=== PATIENT | male | born 1950 | race Caucasian/White ===

== ENCOUNTER 2020-03-17 14:34 | Outpatient (CLI) | payer BC, SELFPAY ==
--- NOTE | 2020-03-17 15:33 | ECHO_ITS ---
Patient Info Name: Rob Miller Age: 69 years : 1950 Gender: Male Ht: 74 in Wt: 224 lbs BSA: 2.32 m2 HR: 96 bpm BP: 152 / 115 mmHg Heart Rhythm: Atrial Fibrillation Technical Quality: Good Exam Date: 03/17/2020 3:50 PM Exam Location: [facility] Patient Status: Outpatient Admit Date: 03/17/2020 Staff Ordering Physician: Jose Luis Eisenberg DO Senior Teradata Developer: Fly Ng RDCS Attending Provider: Jose Luis Eisenberg DO Referring Physician: Faina MAGANA; Exam Type: CA echo doppler color flow Study Info Indications I48.91 - UNSPECIFIED ATRIAL FIBRILLATION Complete two-dimensional, color flow and Doppler transthoracic echocardiogram is performed. Summary 1. Complete two-dimensional, color flow and Doppler transthoracic echocardiogram is performed. 2. Left ventricular chamber dimension is normal. 3. Left ventricular systolic function is normal, estimated at 55-60%. 4. There is mildly increased left ventricular wall thickness. 5. The left ventricular diastolic function is indeterminate. 6. Right ventricular chamber dimension is mildly enlarged. 7. Left atrial chamber dimension is moderately enlarged. 8. Right atrial chamber dimension is mildly enlarged. 9. The mitral valve has calcified annulus. 10. There is mild mitral valve regurgitation. 11. There is mild tricuspid valve regurgitation. 12. Mild pulmonary hypertension, estimated pulmonary arterial systolic pressure is 35 mmHg. Left Ventricle Left ventricular chamber dimension is normal. Left ventricular systolic function is normal, estimated at 55-60%. There is mildly increased left ventricular wall thickness. The left ventricular diastolic function is indeterminate. Right Ventricle Right ventricular chamber dimension is mildly enlarged. Right ventricular systolic function is normal. Left Atria Left atrial chamber dimension is moderately enlarged. Right Atria Right atrial chamber dimension is mildly enlarged. Atrial Septum Intact interatrial septum visualized by color flow imaging. Aortic Valve The aortic valve is trileaflet. There is mild aortic valve sclerosis. There is no aortic valve stenosis. There is trace aortic valve regurgitation. Pulmonic Valve The pulmonic valve is normal. There is no pulmonic valve stenosis. There is trace pulmonic regurgitation. Mitral Valve The mitral valve has calcified annulus. There is no mitral valve stenosis. There is mild mitral valve regurgitation. Tricuspid Valve The tricuspid valve leaflets are normal. There is no significant tricuspid valve stenosis. There is mild tricuspid valve regurgitation. Mild pulmonary hypertension, estimated pulmonary arterial systolic pressure is 35 mmHg. Pericardium/Pleural The pericardium appears normal. There is no pericardial effusion. Inferior Vena Cava Normal inferior vena cava with >50% collapse upon inspiration consistent with normal right atrial pressure, 5 mmHg. Aorta The aortic root size at the sinus of Valsalva is normal. The prox ascending aorta size is normal. Left Ventricular Outflow Tract Name Value Normal LVOT 2D LVOT Diameter 2.4 cm LVOT Doppler
== END 2020-03-17 14:35 | disposition home or self-care (01) ==
LOC: ANHCARD 14:38
PROVIDERS: PCP Internal Medicine; Visit Provider Internal Medicine
DX: I48.91 Unspecified atrial fibrillation (principal); I34.0 Nonrheumatic mitral (valve) insufficiency; I36.1 Nonrheumatic tricuspid (valve) insufficiency; I27.20 Pulmonary hypertension, unspecified
CPT/HCPCS: 93306

== ENCOUNTER → 2020-04-05 12:38 | Outpatient (CLI) | payer BC, SELFPAY ==
[2020-04-06 17:16] LABS: SARS-CoV-2 RNA PCR Negative
== END ==
PROVIDERS: Family Provider Family Medicine; PCP Internal Medicine; Visit Provider Internal Medicine Cardiovascular Disease
DX: Z01.812 Encounter for preprocedural laboratory examination (principal); Z20.822 Contact with and (suspected) exposure to COVID-19
CPT/HCPCS: C9803; U0003; U0005

== ENCOUNTER 2020-04-09 00:09 | Day surgery (SDC) | payer BC, SELFPAY ==
[2020-04-09] VITALS (15 sets, daily range): BP systolic 102–157; BP diastolic 61–114; PULSE 88–107; RESP 15–22; TEMP 36.2–36.4; O2SAT 92–97; BMI 29.8
--- NOTE | 2020-04-09 07:16 | ECG_ITS ---
Measurements Intervals [place] Rate: 104 P: PA: 0 QRS: 47 QRSD: 102 T: 13 QT: 331 QTc: 436 Interpretive Statements ATRIAL FIBRILLATION WITH RAPID VENTRICULAR RESPONSE BASELINE ARTIFACT- I, III, AVL ABNORMAL ECG Electronically Signed On 04-09-2020 8:14:55 WIDE [employer]AD [employer] by Gerald Yuan D.O.
[2020-04-09 08:04] LABS: Hematocrit 42.2 % (42.0-52.0); Hemoglobin 14.1 g/dL (14.0-18.0); Mean Corpuscular HGB Conc 33.4 g/dl (32-36); Mean Corpuscular Hemoglobin 32.7 pg (26-34); Mean Corpuscular Volume 97.9 fl (80-100); Platelet Count Result 188 k/mm3 (150-375); Red Blood Count 4.31 M/mm3 (4.6-6.20); Red Cell Distribution Width 12.8 % (11.5-14.5); White Blood Count 4.5 K/mm3 (4.5-10.0)
[2020-04-09 08:34] LABS: Anion Gap 7 mmol/L (8-16); Blood Urea Nitrogen 12 mg/dL (9-20); Calcium 8.7 mg/dL (8.4-10.2); Carbon Dioxide 32 mmol/L (22-30); Chloride 98 mmol/L (98-107); Estimated CRCL calculation 100 ml/min; Estimated Glomerular Filt Rate > 60; Glucose 118 mg/dL (75-110); Magnesium 1.7 mg/dL (1.6-2.3); Potassium 4.4 mmol/L (3.4-5.0); Sodium 137 mmol/L (137-145)
--- NOTE | 2020-04-09 09:11 | WPDMODSED ---
Moderate Sedation Note-Pt Data Patient Data Diagnosis: Atrial fibrillation Present Complaint: Atrial fibrillation Procedure to be performed/Plan: Electrocardioversion Moderate sedation Allergies Allergy/AdvReac Type Severity Reaction Status Date / Time No Known Allergies Allergy Unverified 02/25/20 13:59 Home Medications Medication Instructions Recorded Confirmed Type B-complex with vitamin C 1 tablet PO DAILY 02/25/20 04/09/20 History albuterol sulfate 90 mcg/actuation 2 puff INHALATION .four times 02/25/20 04/09/20 Rx aerosol inhaler daily #8.5 g diltiazem HCl 180 mg 180 mg PO DAILY #30 cap 02/25/20 04/09/20 Rx capsule,extended release 24 hr irbesartan 300 mg tablet 300 mg PO DAILY 02/25/20 04/09/20 History multivitamin 1 tablet PO DAILY #1 tablet 02/25/20 04/09/20 Rx rivaroxaban 20 mg tablet 20 mg PO DAILY #30 tablet 02/26/20 04/09/20 Rx atorvastatin 10 mg tablet 10 mg PO DAILY #90 tablet 03/10/20 04/09/20 Rx hydralazine 25 mg tablet 25 mg PO ONCE #90 tablet 03/10/20 04/09/20 Rx hydrochlorothiazide 25 mg tablet 25 mg PO DAILY #90 tablet 03/10/20 04/09/20 Rx duloxetine 30 mg capsule,delayed 30 mg PO DAILY #90 cap 03/13/20 04/09/20 Rx release metaxalone 800 mg tablet 800 mg PO TID #180 tablet 03/13/20 04/09/20 Rx diazepam 5 mg tablet 5 mg PO TID PRN #90 tablet 03/27/20 04/09/20 Rx hydrocodone 10 mg-acetaminophen 1 tablet PO Q6H PRN #120 tablet 03/28/20 04/09/20 Rx 325 mg tablet Current Medications: Active Medications Sodium Chloride (Normal Saline Iv) 1,000 mls @ 30 mls/hr IV CONT .Q24H ASTRID Sedation/Anesthesia: No previous sedation/anesthesia problems (including family history). [facility] Past Medical History Medical History (Updated 03/27/20 @ 10:48 by Jose Luis Eisenberg DO) DVT (deep venous thrombosis) 1979 Family History Family History Mother No problems noted. Father Lung cancer Grandparent No problems noted. Social History Social History Smoking status: Never smoker Mod Sed Physical Exam Physical Exam Pre Procedural Exam: Normal: Appearance, Eyes, Ears, Nose, Neck, Throat, Airway, Lungs, Heart Size, Heart Rate, Neuro Exam, Abdomen, Liver, Extremities and Skin and Variation: Heart Rhythm (Irregular irregular) Hours since solid foods: 12 Hours since liquid intake: 12 Internal Medicine - PN: Obj Da Vital Signs Vital Signs: Vital Signs - 24 hr 04/09/20 08:14 Temperature 36.2 C L Pulse Rate 105 H Respiratory Rate 20 Blood Pressure 141/93 H Pulse Oximetry 94 Meds/Results Medications: Active Medications Generic Name Dose Route Start Last Admin Trade Name Freq PRN Reason Stop Dose Admin Sodium Chloride 1,000 mls @ 30 mls/hr 04/09/20 07:20 Normal Saline Iv IV CONT .Q24H ASTRID Labs CBC & Chem 7: 04/09/20 07:57 04/09/20 07:57 Labs: Laboratory Results - last 24 hr 04/09/20 04/09/20 07:57 07:57 WBC 4.5 RBC 4.31 L Hgb 14.1 Hct 42.2 MCV 97.9 MCH 32.7 MCHC 33.4 RDW 12.8 Plt Count 188 MPV 9.0 Sodium 137 Potassium 4.4 Chloride 98 Carbon Dioxide 32 H Anion Gap 7 L BUN 12 Creatinine 0.70 Estim Creat Clear Calc 100 Estimated GFR > 60 Glucose 118 H Calcium 8.7 Magnesium 1.7 ASA Classification/Sedation ASA Classification/Sedation Risks: Risks, benefits and alternatives explained and patient/family accepted plan for sedation. Patient re-evaluated immediately prior to sedation.
--- NOTE | 2020-04-09 09:32 | SUR.OPER ---
Unable to achieve sedation with Versed and Fentanyl. Anesthesia called and will come to administer propofol.
--- NOTE | 2020-04-09 09:46 | SUR.OPER ---
Anesthesia here for administration of propofol for sedation.
--- NOTE | 2020-04-09 10:01 | ECG_ITS ---
Measurements Intervals [place] Rate: 98 P: 49 ID: 285 QRS: 50 QRSD: 98 T: 38 QT: 329 QTc: 421 Interpretive Statements SINUS RHYTHM WITH FIRST DEGREE AV BLOCK EARLY PRECORDIAL R/S TRANSITION ABNORMAL ECG Electronically Signed On 04-09-2020 10:18:46 LARDER COOK by Gerald Yuan D.O.
--- NOTE | 2020-04-09 10:01 | P.PCNCVR_ITS ---
Cardioversion Cardioversion Date of procedure: 04/09/20 Procedure: 1. Electrocardioversion 2. Moderate sedation Pre-op diagnosis: Atrial fibrillation Post-op diagnosis: same Indications: Atrial fibrillation Description of procedure: After discussing risks, benefits alternatives of procedure the patient agreeable via verbal and written informed consent. Risks discussed included stroke, skin irritation or burn, adverse reaction to anesthesia, shocking into more problematic heart rhythm. After verbal and informed consent was signed and after establishing continuous satellite project site monitor, pulse oxygenation and serial blood pressure assessments, sedation was initiated. Procedure start time 9:16 a.m. Procedure stop time 9:55 a.m. Complications: None Blood loss: None Sedation: Medications were administered and patient was monitored by Radha Hinton Medication provided 4 mg of Versed and 75 mcg of fentanyl given in divided dosages. Patient was not adequately sedated with this amount of medication. Therefore anesthesia was called who then provided etomidate also. Findings: After adequate sedation, 200 joules of synchronized biphasic energy was used to restore sinus rhythm from atrial fibrillation. Conclusion: 1. Successful bahai of sinus rhythm from atrial fibrillation using 200 joules synchronized biphasic energy 2. Moderate sedation
== END 2020-04-09 10:45 | disposition home or self-care (01) ==
PROVIDERS: Family Provider Family Medicine; PCP Internal Medicine; Visit Provider Internal Medicine Cardiovascular Disease
PROC: 5A2204Z Restoration of Cardiac Rhythm, Single (ICD-10-PCS; principal; 2020-04-09 08:30)
DX: I48.91 Unspecified atrial fibrillation (principal); Z79.01 Long term (current) use of anticoagulants; Z86.718 Personal history of other venous thrombosis and embolism
CPT/HCPCS: 36415; 80048; 83735; 85027; 92960; 93005; C9803; J2250; J3010; J7030; U0003; U0005

== ENCOUNTER 2021-02-17 01:57 | Day surgery (SDC) | payer BC, SELFPAY ==
[2021-02-16 14:59] VITALS: BMI 43.5
--- NOTE | 2021-02-17 13:00 | ECG_ITS ---
Measurements Intervals [place] Rate: 97 P: 45 PA: 235 QRS: 73 QRSD: 97 T: 40 QT: 342 QTc: 436 Interpretive Statements SINUS RHYTHM WITH FIRST DEGREE AV BLOCK ABNORMAL ECG Electronically Signed On 02-17-2021 14:50:31 QUALITY MANAGEMENT NURSE by Gerald Yuan D.O.
--- NOTE | 2021-02-17 13:00 | ECG_ITS ---
Measurements Intervals [place] Rate: 126 P: [place]: 0 QRS: 73 QRSD: 94 T: 54 QT: 352 QTc: 511 Interpretive Statements ATRIAL FLUTTER/TACHYCARDIA WITH RAPID VENTRICULAR RESPONSE NONSPECIFIC ST ELEVATION IN DIFFUSE LEADS BASELINE ARTIFACT- I, II, III, AVF ABNORMAL ECG Electronically Signed On 02-17-2021 13:51:10 [employer] by Gerald Yuan D.O.
[2021-02-17 13:32] VITALS: BP 156/97; PULSE 127; RESP 16; TEMP 37.1; O2SAT 96; BMI 43.0
[2021-02-17 14:07] LABS: Anion Gap 6 mmol/L (8-16); Blood Urea Nitrogen 13 mg/dL (9-20); Calcium 9.6 mg/dL (8.4-10.2); Carbon Dioxide 35 mmol/L (22-30); Chloride 94 mmol/L (98-107); Estimated CRCL calculation 117 ml/min; Estimated Glomerular Filt Rate > 60; Glucose 113 mg/dL (65-110); Magnesium 1.8 mg/dL (1.6-2.3); Potassium 4.5 mmol/L (3.4-5.0); Sodium 135 mmol/L (137-145)
--- NOTE | 2021-02-17 14:15 | WPDANESEPPF ---
Anes - Initial Pre Proc Eval Procedure: Operation Date: 02/17/21 14:30 Proposed Procedures p Chemical Cardioversion - Jose Daniel Nogueira MD Date/Time: 02/17/21 14:15 Surgeon: Jose Daniel Nogueira MD Pre Op Diagnosis: a-fib Patient Data Age: 70 Gender: M Height: 1.88 m Weight: 152 kg Last Vital Signs Temp 37.1 C 02/17/21 13:32 Pulse 127 H 02/17/21 13:32 Resp 16 02/17/21 13:32 BP 196/155 H 02/17/21 13:32 Pulse Ox 96 02/17/21 13:32 Allergies Allergy/AdvReac Type Severity Reaction Status Date / Time No Known Allergies Allergy Verified 02/17/21 13:29 Home Medications Medication Instructions Recorded Confirmed Type rivaroxaban 20 mg tablet 20 mg PO DAILY #30 tablet 02/26/20 02/17/21 Rx B-complex with vitamin C 1 tablet PO DAILY PRN 06/23/20 02/17/21 History albuterol sulfate 90 mcg/actuation 2 puff INHALATION .four times 06/23/20 02/17/21 History aerosol inhaler daily PRN g atorvastatin 10 mg tablet 10 mg PO DAILY #90 tablet 11/12/20 02/17/21 Rx hydrochlorothiazide 25 mg tablet 25 mg PO DAILY #90 tablet 11/12/20 02/17/21 Rx irbesartan 300 mg tablet 300 mg PO DAILY #90 tablet 11/19/20 02/17/21 Rx hydralazine 25 mg tablet 25 mg PO ONCE #90 tablet 12/04/20 02/17/21 Rx duloxetine 30 mg capsule,delayed 30 mg PO DAILY #90 cap 01/05/21 02/17/21 Rx release metaxalone 800 mg tablet See Rx Instructions .ROUTE 01/05/21 02/17/21 Rx .COMPLEX #180 tablet diltiazem HCl 180 mg 180 mg PO DAILY #30 cap 02/20/21 Rx capsule,extended release 24 hr hydrocodone 10 mg-acetaminophen 1 tablet PO Q6H PRN #120 tablet 02/20/21 Rx 325 mg tablet diazepam 5 mg tablet 5 mg PO TID PRN #90 tablet 02/21/21 Rx Laboratory Tests 02/17/21 13:29 Sodium 135 mmol/L L mmol/L (137-145) Potassium 4.5 mmol/L mmol/L (3.4-5.0) Chloride 94 mmol/L L mmol/L (98-107) Carbon Dioxide 35 mmol/L H mmol/L (22-30) Anion Gap 6 mmol/L L mmol/L (8-16) BUN 13 mg/dL mg/dL (9-20) Creatinine 0.80 mg/dL mg/dL (0.7-1.3) Estim Creat Clear Calc 117 ml/min ml/min Estimated GFR > 60 (59 - ) Glucose 113 mg/dL H mg/dL (65-110) Calcium 9.6 mg/dL mg/dL (8.4-10.2) Magnesium 1.8 mg/dL mg/dL (1.6-2.3) Patient hx anesthesia problems: none Family hx anesthesia problems: none Results Review: All pre-operative results and documents have been reviewed as part of the pre-operative evaluation. [facility] Past Medical History Medical History Anxiety Atrial fibrillation Chronic, continuous use of opioids DVT (deep venous thrombosis) 1980 Essential hypertension Mixed hyperlipidemia Family History Family History Mother No problems noted. Father Lung cancer Grandparent No problems noted. Social History Social History Smoking status: Never smoker Second hand tobacco smoke exposure: Yes Alcohol intake: former Substance use: never Anes - Eval Final PreProcedure Day of Procedure 02/17/21 14:15 Patient weight: morbidly obese Heart: regular rate and rhythm Lungs: clear to auscultation and normal air movement Airway: Mallampati scale class II Neurological: alert and oriented Last oral intake: >/= 8 hours ASA classification: III Emergent: no Anesthetic plan: proceed Anesthesia type and monitoring: general GIVS and standard monitoring Results Review: All pre-operative results and documents have been reviewed as part of the pre-operative evaluation. Informed Consent: The patient's anesthetic plan and its attendant risks and benefits were discussed with the patient/family/POA. Questions were solicited and answers provided to the satisfaction of the patient/family/POA.
--- NOTE | 2021-02-17 14:32 | WPDMODSED ---
Moderate Sedation Note-Pt Data Patient Data Diagnosis: Atrial fibrillation /flutter Present Complaint: atrial fibrillation/flutter Procedure to be performed/Plan: electrical cardioversion Allergies Allergy/AdvReac Type Severity Reaction Status Date / Time No Known Allergies Allergy Verified 02/17/21 13:29 Home Medications Medication Instructions Recorded Confirmed Type diltiazem HCl 180 mg 180 mg PO DAILY #30 cap 02/25/20 02/17/21 Rx capsule,extended release 24 hr rivaroxaban 20 mg tablet 20 mg PO DAILY #30 tablet 02/26/20 02/17/21 Rx B-complex with vitamin C 1 tablet PO DAILY PRN 06/23/20 02/17/21 History albuterol sulfate 90 mcg/actuation 2 puff INHALATION .four times 06/23/20 02/17/21 History aerosol inhaler daily PRN g atorvastatin 10 mg tablet 10 mg PO DAILY #90 tablet 11/12/20 02/17/21 Rx hydrochlorothiazide 25 mg tablet 25 mg PO DAILY #90 tablet 11/12/20 02/17/21 Rx irbesartan 300 mg tablet 300 mg PO DAILY #90 tablet 11/19/20 02/17/21 Rx hydralazine 25 mg tablet 25 mg PO ONCE #90 tablet 12/04/20 02/17/21 Rx duloxetine 30 mg capsule,delayed 30 mg PO DAILY #90 cap 01/05/21 02/17/21 Rx release metaxalone 800 mg tablet See Rx Instructions .ROUTE 01/05/21 02/17/21 Rx .COMPLEX #180 tablet diazepam 5 mg tablet 5 mg PO TID PRN #90 tablet 01/20/21 02/17/21 Rx hydrocodone 10 mg-acetaminophen 1 tablet PO Q6H PRN #120 tablet 01/20/21 02/17/21 Rx 325 mg tablet Current Medications: Active Medications Sodium Chloride (Normal Saline Iv) 1,000 mls @ 30 mls/hr IV CONT .Q24H ASTRID Sedation/Anesthesia: No previous sedation/anesthesia problems (including family history). [facility] Past Medical History Medical History Anxiety Atrial fibrillation Chronic, continuous use of opioids DVT (deep venous thrombosis) 1980 Essential hypertension Mixed hyperlipidemia Family History Family History Mother No problems noted. Father Lung cancer Grandparent No problems noted. Social History Social History Smoking status: Never smoker Second hand tobacco smoke exposure: Yes Alcohol intake: former Substance use: never Mod Sed Physical Exam Physical Exam Pre Procedural Exam: Normal: Appearance, Eyes, Ears, Nose, Neck, Throat, Airway, Lungs, Heart Size, Neuro Exam, Abdomen, Extremities and Skin and Variation: Heart Rate ( tachycardic) and Heart Rhythm ( irregularly irregular) Hours since solid foods: 12 Hours since liquid intake: 12 Mallampati Classification: class II Internal Medicine - PN: Obj Da Vital Signs Vital Signs: Vital Signs - 24 hr 02/17/21 13:32 Temperature 37.1 C Pulse Rate 127 H Respiratory Rate 16 Blood Pressure 196/155 H Pulse Oximetry 96 Meds/Results Medications: Active Medications Generic Name Dose Route Start Last Admin Trade Name Freq PRN Reason Stop Dose Admin Sodium Chloride 1,000 mls @ 30 mls/hr 02/17/21 13:00 Normal Saline Iv IV CONT .Q24H ASTRID Labs CBC & Chem 7: 02/17/21 13:29 Labs: Laboratory Results - last 24 hr 02/17/21 13:29 Sodium 135 L Potassium 4.5 Chloride 94 L Carbon Dioxide 35 H Anion Gap 6 L BUN 13 Creatinine 0.80 Estim Creat Clear Calc 117 Estimated GFR > 60 Glucose 113 H Calcium 9.6 Magnesium 1.8 ASA Classification/Sedation ASA Classification/Sedation ASA Class: III Emergent: No Risks: Risks, benefits and alternatives explained and patient/family accepted plan for sedation. Patient re-evaluated immediately prior to sedation.
--- NOTE | 2021-02-17 14:40 | P.PCNCVR_ITS ---
Cardioversion Cardioversion Date of procedure: 02/17/21 Procedure: electrical cardioversion Pre-op diagnosis: atrial flutter Post-op diagnosis: same Indications: atrial flutter Description of procedure: after discussing the risks, benefits alternatives of the procedure patient agreeable via verbal and written informed consent. Risks discussed included shocking into more problematic heart rhythm, , adverse reaction to anesthesia, skin irritation a burn, stroke. Procedure was performed in the GI lab, see separate report for anesthesia details. After informed consent was obtained and time-out was taking, sedation was performed with propofol with the assistance of anesthesia. Sedation: Per separate report Findings: atrial flutter was confirmed prior to using 150 joules of synchronized biphasic energy to restore sinus rhythm / sinus tachycardia rate of 100 beats per minute. Conclusion: 1. Successful episcopalian of sinus rhythm / sinus tachycardia from atrial flutter using 150 joules of synchronized biphasic energy EKG performed post procedure. Continue anticoagulation
[2021-02-17 14:49] VITALS: BP 149/91; PULSE 98; RESP 16; O2SAT 97
[2021-02-17 15:10] VITALS: BP 145/101; PULSE 97; RESP 16; O2SAT 97
[2021-02-17 15:15] VITALS: BP 147/99; PULSE 96; RESP 16; O2SAT 97
[2021-02-17 15:32] VITALS: BP 143/109; PULSE 96; RESP 16; O2SAT 97
--- NOTE | 2021-02-17 15:35 | SUR.PHASEII ---
1435- cardioversion 150 j afib to sr
--- NOTE | 2021-02-17 15:45 | SUR.PHASEII ---
d/c instructions given with at side by isabella kennedy. iv d/c tip intact by isabella kennedy. written d/c instructions given to patient. patient transferred via wheelchair to vehicle.
== END 2021-02-17 15:50 | disposition home or self-care (01) ==
PROVIDERS: PCP Internal Medicine; Visit Provider Internal Medicine Cardiovascular Disease
PROC: 5A2204Z Restoration of Cardiac Rhythm, Single (ICD-10-PCS; principal; 2021-02-17 14:30)
DX: I48.92 Unspecified atrial flutter (principal); E78.2 Mixed hyperlipidemia; I10 Essential (primary) hypertension; F41.9 Anxiety disorder, unspecified; Z86.718 Personal history of other venous thrombosis and embolism; Z79.891 Long term (current) use of opiate analgesic; Z79.01 Long term (current) use of anticoagulants; Z79.51 Long term (current) use of inhaled steroids; E66.01 Morbid (severe) obesity due to excess calories; Z68.41 Body mass index [BMI] 40.0-44.9, adult
CPT/HCPCS: 36415; 80048; 83735; 92960; J2704

== ENCOUNTER → 2021-04-07 08:19 | Outpatient (CLI) | payer BC, SELFPAY ==
--- NOTE | ~2021-04-07 | XR_ITS ---
EXAMINATION: XR foot RT min 3V DATE: 04/07/2021 08:38 INDICATION: Right foot pain. TECHNIQUE: 4 views of right foot were obtained. COMPARISON: None. FINDINGS: Bone alignment is normal. No acute fracture. There is an old healed fracture of base of fif th proximal phalanx. There is mild osteoarthritis of some of the midfoot joints, metacarpophalangeal joints, and interphalangeal joints. There are enthesophytes at the posterior and plantar aspects of c alcaneal tuberosity. IMPRESSION: 1. Mild polyarticular osteoarthritis. Reviewed, dictated and finalized at location A. MACHINE OPERATOR
== END ==
PROVIDERS: PCP Internal Medicine; Visit Provider Nurse Practitioner
DX: M19.071 Primary osteoarthritis, right ankle and foot (principal)
CPT/HCPCS: 73630

== ENCOUNTER → 2022-04-27 08:30 | Outpatient (CLI) | payer BC, SELFPAY ==
--- NOTE | ~2022-04-27 | XR_ITS ---
EXAMINATION: XR ribs LT 2V w CXR 2V INDICATION: Left chest pain TECHNIQUE: PA and lateral views of the chest and 3 views of the left ribs were obtained. COMPARISON: 05/26/2010 FINDINGS: The lungs are free of acute opacities. No pleural effusion or pneumothorax. The cardiomedia stinal silhouette is normal. There is mild thoracic spondylosis. No displaced rib fracture is identif ied. IMPRESSION: 1. No acute cardiopulmonary abnormality or evidence of displaced rib fracture. Reviewed, dictated and finalized at location L. UTER SCIENCE INTERN
== END ==
PROVIDERS: PCP Internal Medicine; Visit Provider Internal Medicine
DX: S22.39XA Fracture of one rib, unspecified side, initial encounter for closed fracture (principal); S22.49XA Multiple fractures of ribs, unspecified side, initial encounter for closed fracture; X58.XXXA Exposure to other specified factors, initial encounter
CPT/HCPCS: 71046; 71100

== ENCOUNTER 2022-08-04 13:34 | Outpatient (CLI) | payer BC, SELFPAY ==
--- NOTE | ~2022-08-04 | US_ITS ---
EXAMINATION:US venous doppler LE BI INDICATION:Venous insufficiency. History of DVT. Patient on blood thinners. TECHNIQUE: Multiple grayscale, color flow and Doppler images of the right and left lower extremity de ep venous systems were obtained and reviewed. COMPARISON:Ultrasound dated 12/08/2018 FINDINGS: The left common femoral, superficial femoral and popliteal veins demonstrate normal respira tory variation, augmentation and compressibility. Color flow is also seen within the posterior tibia l, peroneal, greater saphenous and profunda veins. In the right lower extremity there is a chronic right femoral vein deep venous thrombosis. No evidenc e for Allison's cyst in the left lower extremity. 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 Reviewed, dictated and finalized at location D.
== END 2022-08-04 13:35 | disposition home or self-care (01) ==
PROVIDERS: PCP Family Medicine; Visit Provider Family Medicine
DX: I82.511 Chronic embolism and thrombosis of right femoral vein (principal); I87.2 Venous insufficiency (chronic) (peripheral); M71.20 Synovial cyst of popliteal space [Baker], unspecified knee
CPT/HCPCS: 93970

== ENCOUNTER 2023-03-22 13:07 | Outpatient (CLI) | payer BC, SELFPAY ==
--- NOTE | ~2023-03-22 | XR_ITS ---
XR chest 2V DATE: 03/22/2023 13:30 INDICATION: Acute bronchospasm TECHNIQUE: 2 views COMPARISON: April 27, 2022 2 view chest May 26, 2010 PA and lateral chest FINDINGS: Normal heart size. No pulmonary infiltrate or consolidation, pleural effusion or pulmonary vascular congestion or pneumothorax is detected. Aortic calcification. Prominence of the central pulmonary arteries is not significantly changed kermit red to 05/26/2010. Mild thoracic dextroscoliosis. Degenerative spurring of the thoracic spine. IMPRESSION: No active cardiopulmonary disease Aortic atherosclerosis Reviewed, dictated and finalized at location L. LAR SET CREW MEMBER
== END 2023-03-22 13:08 ==
LOC: MICIMG 13:10
PROVIDERS: PCP Family Medicine; Visit Provider Family Medicine
DX: J98.01 Acute bronchospasm (principal); I70.0 Atherosclerosis of aorta
CPT/HCPCS: 71046

== ENCOUNTER 2024-03-29 09:57 | Outpatient (CLI) | payer OTHER, SELFPAY ==
--- NOTE | ~2024-03-29 | XR_ITS ---
XR cervical spine 4-5V Ordering provider: Rodrigo Doe MD History: . M54.2 - Cervicalgia . Comparison: None. FINDINGS: VERTEBRAL BODIES: Normal height and alignment. No visible fracture or subluxation. The dens is intact . DISK SPACES: Narrowing of the disc spaces at the level of C5-C6 and C6-C7. Multilevel uncovertebral j oint osteoarthritic changes. PARASPINOUS SOFT TISSUES: No prevertebral soft tissue swelling. IMPRESSION: No acute osseous abnormality cervical spine. Multilevel degenerative disc disease. Reviewed, dictated and finalized at location A. ING PLANNER
== END 2024-03-29 09:58 | disposition home or self-care (01) ==
LOC: MICIMG 09:59
PROVIDERS: PCP Family Medicine; Visit Provider Family Medicine
DX: M50.322 Other cervical disc degeneration at C5-C6 level (principal); M50.323 Other cervical disc degeneration at C6-C7 level
CPT/HCPCS: 72050

== ENCOUNTER 2024-12-14 02:08 | Day surgery (SDC) | payer MEDICARE, SELFPAY ==
[2024-12-03 14:20] VITALS: BMI 42.3
--- NOTE | 2024-12-06 14:10 | PC.NURSE ---
Spoke with patient regarding medication XARELTO. Patient verbalizes understanding that the last dose is to be taken on 12/11/24 and the Endoscopist will instruct them when to restart after the procedure.
[2024-12-14 10:39] VITALS: BP 138/91; PULSE 116; RESP 18; TEMP 36.7; O2SAT 94
[2024-12-14] MEDS: LACTATED RINGERS 1,000 ML 150 ML IV CONT (10:59)
--- NOTE | 2024-12-14 12:01 | WPDANESEPPF ---
Anes - Initial Pre Proc Eval Procedure: Operation Date: 12/14/24 11:30 Proposed Procedures p Diagnostic Colonoscopy - Jordin Ortiz MD Date/Time: 12/14/24 12:01 Surgeon: Jordin Ortiz MD Pre Op Diagnosis: neoplasm screening Pre Op Diagnosis: Other fecal abnormalities Patient Data Age: 73 Gender: M Height: 1.88 m Weight: 144.4 kg Last Vital Signs Temp 36.7 C 12/14/24 10:39 Pulse 116 H 12/14/24 10:39 Resp 18 12/14/24 10:39 BP 138/91 H 12/14/24 10:39 Pulse Ox 94 12/14/24 10:39 O2 Del Method Room Air 12/14/24 10:39 Allergies Allergy/AdvReac Type Severity Reaction Status Date / Time hydroxyzine Allergy Mild Unknown Verified 12/14/24 10:35 Home Medications ?Medication ?Instructions ?Recorded ?Confirmed ?Type rivaroxaban 20 mg tablet (Xarelto) 20 mg PO DAILY #30 tabs 02/26/20 12/14/24 Rx B-complex with vitamin C 1 tablet PO DAILY PRN (Drug) 06/23/20 12/14/24 History Ingestion qkrffvlebbej-lba-hbcru acid-vit 1 tablet PO DAILY 04/01/22 12/14/24 History K-lycop 400 mcg-20 mcg-370 mcg tablet (One-A-Day Men's 50 Plus (with vitamin K)) diltiazem HCl 180 mg capsule,24 360 mg PO DAILY 05/20/23 12/14/24 History hr,extended release cholecalciferol (vitamin D3) 1,250 See Rx Instructions .Route 07/27/23 12/14/24 Rx mcg (50,000 unit) capsule .COMPLEX #14 caps hydrochlorothiazide 25 mg tablet See Rx Instructions .Route 09/14/23 12/14/24 Rx .COMPLEX #90 tabs sildenafil 50 mg tablet 50 mg PO DAILY PRN sexual activity 09/19/23 12/03/24 Rx #4 tabs sildenafil 100 mg tablet (Viagra) 100 mg PO DAILY PRN sexual 05/07/24 12/03/24 Rx activity #20 tabs atorvastatin 10 mg tablet See Rx Instructions .Route 06/25/24 12/14/24 Rx .COMPLEX #90 tabs duloxetine 30 mg capsule,delayed See Rx Instructions .Route 06/25/24 12/14/24 Rx release .COMPLEX #90 caps albuterol sulfate 90 mcg/actuation 2 puff inhalation .four times 09/17/24 12/03/24 Rx aerosol inhaler daily PRN shortness of breath or wheezing #8.5 grams diazepam 5 mg tablet 5 mg PO BID PRN anxiety #60 tabs 11/14/24 12/14/24 Rx nortriptyline 25 mg capsule 25 mg PO DAILY #90 caps 11/26/24 12/14/24 Rx baclofen 10 mg tablet 10 mg PO Q8H PRN muscle spasm #270 12/03/24 12/14/24 Rx tabs hydralazine 25 mg tablet 25 mg PO DAILY #90 tabs 12/03/24 12/14/24 Rx hydrocodone 10 mg-acetaminophen 1 tablet PO Q6H PRN pain #120 tabs 12/03/24 12/14/24 Rx 325 mg tablet irbesartan 300 mg tablet 300 mg PO DAILY #90 tabs 12/03/24 12/14/24 Rx metoprolol succinate 100 mg 100 mg PO DAILY 12/03/24 12/14/24 History tablet,extended release 24 hr ECG: A Flutter Patient hx anesthesia problems: none Family hx anesthesia problems: none Results Review: All pre-operative results and documents have been reviewed as part of the pre-operative evaluation. [facility] Past Medical History Medical History Scoliosis Degenerative joint disease of spine Chronic, continuous use of opioids Anxiety Atrial fibrillation DVT (deep venous thrombosis) 1979 Plantar fasciitis, bilateral Polyarthritis of multiple sites Mixed hyperlipidemia Essential hypertension Cervical radiculopathy Surgical History Surgical History History of surgery on arm History of bilateral knee replacement 1999- 2000- Family History Family History Mother No problems noted. Father Lung cancer Grandparent No problems noted. Social History Social History Smoking status: Never smoker Second hand tobacco smoke exposure: Yes Alcohol intake: former Substance use: never Substance use type: does not use Lack of Transportation: No Lack of Food: Never True Current Housing: I Have Housing Concerned About Future Housing: No Difficulty Paying Gas/Electric Bills: No Difficulty Paying for Meds: No Currently Unemployed: No Education: Trade/Vocational Certificate Difficulty w/ Childcare or Family Care: No Living arrangements: with family Spiritual care concerns: No Anes - Eval Final PreProcedure Day of Procedure 12/14/24 12:01 Patient weight: obese Heart: irregular rhythm Lungs: clear to auscultation Airway: Mallampati scale class III Neurological: alert and oriented Last oral intake: >/= 8 hours ASA classification: III Emergent: no Anesthetic plan: proceed Anesthesia type and monitoring: general GIVS and standard monitoring Other findings: DNR Results Review: All pre-operative results and documents have been reviewed as part of the pre-operative evaluation. Informed Consent: The patient's anesthetic plan and its attendant risks and benefits were discussed with the patient/family/POA. Questions were solicited and answers provided to the satisfaction of the patient/family/POA.
--- NOTE | 2024-12-14 12:03 | PM.HPGS ---
History of Present Illness History of Present Illness Consent: Risks, benefits, and alternatives have been discussed and questions answered. Patient agrees to proceed with procedure. Chief complaint: Other fecal abnormalities Narrative: Rob Powell is a 73 year old male here for colonoscopy, had + FIT, last colonoscopy about 20 years ago Review of Systems Review of Systems: All systems reviewed & are unremarkable except as noted in HPI and below PMFSH Past Medical History Medical History Scoliosis Degenerative joint disease of spine Chronic, continuous use of opioids Anxiety Atrial fibrillation DVT (deep venous thrombosis) 1980 Plantar fasciitis, bilateral Polyarthritis of multiple sites Mixed hyperlipidemia Essential hypertension Cervical radiculopathy Surgical History Surgical History History of surgery on arm History of bilateral knee replacement 1999- 2000- Family History Family History Mother No problems noted. Father Lung cancer Grandparent No problems noted. Social History Social History Smoking status: Never smoker Second hand tobacco smoke exposure: Yes Alcohol intake: former Substance use: never Substance use type: does not use Lack of Transportation: No Lack of Food: Never True Current Housing: I Have Housing Concerned About Future Housing: No Difficulty Paying Gas/Electric Bills: No Difficulty Paying for Meds: No Currently Unemployed: No Education: Trade/Vocational Certificate Difficulty w/ Childcare or Family Care: No Living arrangements: with family Spiritual care concerns: No Meds Home Medications and Allergies Home Medications ?Medication ?Instructions ?Recorded ?Confirmed ?Type rivaroxaban 20 mg tablet (Xarelto) 20 mg PO DAILY #30 tabs 02/26/20 12/14/24 Rx B-complex with vitamin C 1 tablet PO DAILY PRN (Drug) 06/23/20 12/14/24 History Ingestion pxsfrraeascl-moj-xhxgm acid-vit 1 tablet PO DAILY 04/01/22 12/14/24 History K-lycop 400 mcg-20 mcg-370 mcg tablet (One-A-Day Men's 50 Plus (with vitamin K)) diltiazem HCl 180 mg capsule,24 360 mg PO DAILY 05/20/23 12/14/24 History hr,extended release cholecalciferol (vitamin D3) 1,250 See Rx Instructions .Route 07/27/23 12/14/24 Rx mcg (50,000 unit) capsule .COMPLEX #14 caps hydrochlorothiazide 25 mg tablet See Rx Instructions .Route 09/14/23 12/14/24 Rx .COMPLEX #90 tabs sildenafil 50 mg tablet 50 mg PO DAILY PRN sexual activity 09/19/23 12/03/24 Rx #4 tabs sildenafil 100 mg tablet (Viagra) 100 mg PO DAILY PRN sexual 05/07/24 12/03/24 Rx activity #20 tabs atorvastatin 10 mg tablet See Rx Instructions .Route 06/25/24 12/14/24 Rx .COMPLEX #90 tabs duloxetine 30 mg capsule,delayed See Rx Instructions .Route 06/25/24 12/14/24 Rx release .COMPLEX #90 caps albuterol sulfate 90 mcg/actuation 2 puff inhalation .four times 09/17/24 12/03/24 Rx aerosol inhaler daily PRN shortness of breath or wheezing #8.5 grams diazepam 5 mg tablet 5 mg PO BID PRN anxiety #60 tabs 11/14/24 12/14/24 Rx nortriptyline 25 mg capsule 25 mg PO DAILY #90 caps 11/26/24 12/14/24 Rx baclofen 10 mg tablet 10 mg PO Q8H PRN muscle spasm #270 12/03/24 12/14/24 Rx tabs hydralazine 25 mg tablet 25 mg PO DAILY #90 tabs 12/03/24 12/14/24 Rx hydrocodone 10 mg-acetaminophen 1 tablet PO Q6H PRN pain #120 tabs 12/03/24 12/14/24 Rx 325 mg tablet irbesartan 300 mg tablet 300 mg PO DAILY #90 tabs 12/03/24 12/14/24 Rx metoprolol succinate 100 mg 100 mg PO DAILY 12/03/24 12/14/24 History tablet,extended release 24 hr Allergies Allergy/AdvReac Type Severity Reaction Status Date / Time hydroxyzine Allergy Mild Unknown Verified 12/14/24 10:35 Vital Signs Vital Signs - 24 hr 12/14/24 10:39 Temperature 98.0 F Pulse Rate 116 H Respiratory Rate 18 Blood Pressure 138/91 H Pulse Oximetry 94 Oxygen Delivery Room Air Exam Const: General: comfortable and no acute distress Resp: Auscultation: clear to auscultation bilaterally Cardio: Rate: regular rate GI: Inspection: non-distended GI Palp: Yes Soft to palpation Skin: General skin exam: normal color Extrem: General: normal to inspection Psych: Mental Status: mental status grossly normal Assessment and Plan Assessment and plan (1) Positive FIT (fecal immunochemical test): Code(s): R19.5 - Other fecal abnormalities Status: Acute Assessment and Plan: colonoscopy
--- NOTE | 2024-12-14 12:25 | S_PTH ---
PATIENT: Rob Powell LOC: [facility]#:[id number] AGE/SX: 73/M ROOM: RE12/14/[address]: Jordin Ortiz MD : 1950 BED: DIS: 12/14/2024 SPEC #: [id number] RECD: 12/14/24 12:44 STATUS: [place] #: [id number] YOLIS: 12/14/24 12:[address]: Jordin Ortiz DEPT: [facility] Surgical RECD BY: Nicloas Reza ENTERED: 12/14/24 12:44 SP TYPE: Surgical OTHR DR: Rodrigo Doe MD Tissues: A - Colon Polypectomy B - Colon Polypectomy Procedures: Hematoxylin and Eosin Stain Gross and Microscopic Level 4
[2024-12-14 12:28] VITALS: BP 130/90; PULSE 106; RESP 22; O2SAT 95
[2024-12-14 12:38] VITALS: BP 124/85; PULSE 105; RESP 20; O2SAT 93
[2024-12-14 12:48] VITALS: BP 130/90; PULSE 103; RESP 20; O2SAT 93
== END 2024-12-14 12:58 | disposition home or self-care (01) ==
PROVIDERS: PCP Family Medicine; Referring Provider Family Medicine; Visit Provider Internal Medicine Gastroenterology
PROC: 0DJD8ZZ Inspection of Lower Intestinal Tract, Via Natural or Artificial Opening Endoscopic (ICD-10-PCS; CPT 45378; principal; 2024-12-14 11:30)
DX: R19.5 Other fecal abnormalities (principal); D12.2 Benign neoplasm of ascending colon; D12.3 Benign neoplasm of transverse colon; K64.8 Other hemorrhoids; E66.9 Obesity, unspecified; Z68.41 Body mass index [BMI] 40.0-44.9, adult
CPT/HCPCS: 45385; 88305; J2003; J2704; J7120